=== PATIENT | female | born 1980 | race Two or more races ===

== ENCOUNTER 2025-04-08 10:00 | Day surgery (SDC) | payer OTHER ==
[2025-04-05 11:00] VITALS: BP 134/81
[~2025-04-08] VITALS: Ht 154.9 cm; Wt 70.3 kg
[2025-04-08] MEDS ORDERED: TRANEXAMIC ACID 100MG/1ML (1000MG) AMPUL IV ONE (12:15)
[2025-04-08] MEDS ORDERED: POVIDONE-IODINE 118 ML BOTT TOP ONE (12:15)
[2025-04-08] MEDS ORDERED: CLINDAMYCIN PHOSPHATE 150 MG/ML (900mg) IV ONE (12:15)
[2025-04-08] MEDS ORDERED: CEFAZOLIN SODIUM 1,000 MG VIAL IV ONE (12:15)
[2025-04-08] MEDS ORDERED: GENTAMICIN SULFATE 40 MG/ML VIAL IR ONE (12:30)
[2025-04-08] MEDS ORDERED: CHLORHEXIDINE GLUCONATE 120 ML BOTTLE TOP ONE (12:30)
[2025-04-08] MEDS ORDERED: SUGAMMADEX SODIUM 200 MG/2 ML VIAL IV ONE (16:45)
[2025-04-08] MEDS ORDERED: MORPHINE SULFATE 4 MG/ML VIAL IV ONE ×2 (16:50→17:45)
== END 2025-04-08 18:40 | disposition home or self-care (01) ==
LOC: CIR.AMB 10:00
PROVIDERS: ATTEND Surgery
DX: D05.11 Intraductal carcinoma in situ of right breast (principal); D48.62 Neoplasm of uncertain behavior of left breast; Z15.01 Genetic susceptibility to malignant neoplasm of breast; R59.0 Localized enlarged lymph nodes; N60.92 Unspecified benign mammary dysplasia of left breast; D24.2 Benign neoplasm of left breast; R92.1 Mammographic calcification found on diagnostic imaging of breast